=== PATIENT | male | born 2000 | race Caucasian/White ===

== ENCOUNTER → 2019-01-13 | Outpatient (CLI) | payer OTHER ==
--- NOTE | 2019-01-13 08:38 | US ---
EXAMINATION TYPE: US abdomen limited DATE OF EXAM: 01/13/2019 COMPARISON: NONE CLINICAL HISTORY: R19.00 intra abd and pelvic swelling, mass/lump. RLQ area of swelling and occasiona l right flank pain x couple years RLQ area of concern: no mass, fluid collection or other abnormality seen at this time LLQ for comparison: no mass, fluid collection or other abnormality seen at this time IMPRESSION: No abnormalities by ultrasound. If the finding persists correlate with MRI as clinically warranted.
== END | disposition home or self-care (01) ==
LOC: RADUSMAIN 07:48
PROVIDERS: ATTEND Family Medicine
DX: R19.00 Intra-abdominal and pelvic swelling, mass and lump, unspecified site (principal)
CPT/HCPCS: 76705

== ENCOUNTER → 2019-01-20 | Outpatient (CLI) | payer OTHER ==
--- NOTE | 2019-01-20 11:47 | US ---
EXAMINATION TYPE: US abdomen complete DATE OF EXAM: 01/20/2019 COMPARISON: NONE CLINICAL HISTORY: R10.11 rt upper quad pain. EXAM MEASUREMENTS: Liver Length: 13.9 cm Gallbladder Wall: 0.3 cm CBD: 0.2 cm Spleen: 11.8 cm Right Kidney: 11.6 x 4.1x 5.3 cm Left Kidney: 10.8 x 5.9 x 4.8 cm Pancreas: Obscured by bowel gas Liver: wnl Gallbladder: wnl Evidence for sonographic Chen's sign: no CBD: wnl Spleen: wnl Right Kidney: wnl Left Kidney: Superior pole obscured by bowel gas Upper IVC: wnl Abd Aorta: wnl The liver is homogenous. The intrahepatic portion of the IVC and proximal abdominal aorta are within normal limits. There is no evidence of cholelithiasis. Common bile duct is unremarkable. The visu alized portions of the pancreas are homogenous. The spleen is unremarkable. Kidneys are symmetric a nd free of hydronephrosis. No renal lesions are seen. IMPRESSION: No sonographic evidence of cholelithiasis nor acute cholecystitis. No hydronephrosis is s een of either kidney although the superior pole of the left kidney is obscured by bowel gas. Pancreas is also noted to be obscured by bowel gas.
== END | disposition home or self-care (01) ==
LOC: RADUSWWP 11:04
PROVIDERS: ATTEND Family Medicine
DX: R10.11 Right upper quadrant pain (principal)
CPT/HCPCS: 76700